=== PATIENT | female | born 1995 | race African-American/Black ===

== ENCOUNTER 2017-03-24 11:00 | Emergency (ER) | payer OTHER ==
[~2017-03-24] VITALS: Ht 182.9 cm; Wt 89.8 kg
[~2017-03-24 11:00] MED LIST: ABILIFY10 MG; ACETAMINOPHEN-1 EAC1 PO; BENTYL 10 MG CA10 M1 PO; CARAFATE 1 GM TA1 GM PO; CIPROFLOXIN HC2.5 M1 OPHTHALMIC; CORTISPORIN OTI10 M2 OT; IBUPROFEN 600600 M1 PO; IBUPROFEN 800800 M1 PO; INTUNIV1 MG PO; INTUNIV2 MG PO; KEFLEX500 MG PO; LEVOTHYROXIN0.075 MG PO; LEVOTHYROXINE0.05 MG; LORTABELXR PO; MEDROLDOSEPACK PO; MUCINEX TA600 MG/TA2 PO; NAPROXEN500 MG PO; NOHOMEMEDICATIONS; NORCO 5-325 TA1 EAC1 PO; NORCO 5-325 TA1 EACH PO; OMEPRAZOLE20 M2 PO; PROAIR HFA8.5 GM INH; ROBITUSSIN DM118 ML PO; SEROQUEL 50 MG50 M1; SYNTHROID75 MCG PO; ULTRAM 50MG TAB50 MG PO; ZOFRAN ODT4 MG PO
[2017-03-24 11:31] LABS: HEMATOCRIT 39.3 % (37.0-47.0); HEMOGLOBIN 12.9 gm/dL (12.0-15.0); MCH 28.9 pg (26.0-34.0); MCHC 32.7 g/dL (28.0-37.0); MCV 88.4 fL (80.0-100.0); MPV 8.9 fl. (7.2-11.1); NUCLEATED RBCS 0 /100WBC; PLATELET COUNT* 224 thou/uL (150-400); RBC 4.45 mil/uL (4.20-5.00); RDW-CV 14.2 % (10.5-14.5); WBC 11.9 thou/uL (4.0-11.0)
[2017-03-24 11:38] LABS: CALCIUM 8.7 mg/dL (8.5-10.1); CREATININE 0.6 mg/dL (0.6-1.3); POTASSIUM 3.7 mmol/L (3.5-5.1)
[2017-03-24 11:42] LABS: ALBUMIN 3.8 g/dL (3.4-5.0); TOTAL BILIRUBIN 0.5 mg/dL (<0.1-1.0); TOTAL PROTEIN 7.6 g/dL (6.4-8.2)
[2017-03-24 11:53] LABS: INFLUENZA A ANTIGEN None Detected (None Detect); INFLUENZA B ANTIGEN None Detected (None Detect)
[2017-03-24 12:11] LABS: ABSOLUTE LYMPHOCYTES 1.7 thou/uL (0.8-5.3); ABSOLUTE NEUTROPHILS 9.3 thou/uL (1.6-8.1); ANISOCYTOSIS 1+; PLATELET ESTIMATE ADEQUATE; POIKILOCYTOSIS 1+
[2017-03-24] MEDS ORDERED: ZITHROMAX500 MG PO (12:12)
[2017-03-24] MEDS ORDERED: IBUPROFEN 800800 M1 PO (12:12)
[2017-03-24 12:16] VITALS: BP 129/93
== END 2017-03-24 12:17 | disposition home or self-care (01) ==
LOC: M.ERS 11:00
PROVIDERS: Nurse Practitioner Family
DX: B27.90 Infectious mononucleosis, unspecified without complication (principal); J02.0 Streptococcal pharyngitis; F31.9 Bipolar disorder, unspecified; E07.9 Disorder of thyroid, unspecified; Z88.8 Allergy status to other drugs, medicaments and biological substances

== ENCOUNTER 2017-07-08 08:39 | Emergency (ER) | payer OTHER ==
[~2017-07-08] VITALS: Ht 182.9 cm; Wt 93.0 kg
[~2017-07-08 08:39] MED LIST changes: +ZITHROMAX500 MG PO
[2017-07-08] MEDS ORDERED: NAPROSYN500 MG PO (09:42)
[2017-07-08 10:27] VITALS: BP 124/79
== END 2017-07-08 10:29 | disposition home or self-care (01) ==
LOC: M.ERS 08:39
DX: S86.911A Strain of unspecified muscle(s) and tendon(s) at lower leg level, right leg, initial encounter (principal); F31.9 Bipolar disorder, unspecified; E07.9 Disorder of thyroid, unspecified; Z88.8 Allergy status to other drugs, medicaments and biological substances; W50.2XXA Accidental twist by another person, initial encounter; Y93.89 Activity, other specified; Y92.89 Other specified places as the place of occurrence of the external cause; Y99.0 Civilian activity done for income or pay

== ENCOUNTER 2018-01-03 12:44 | Emergency (ER) | payer OTHER ==
[~2018-01-03] VITALS: Ht 182.9 cm; Wt 112.5 kg
[~2018-01-03 12:44] MED LIST changes: +NAPROSYN500 MG PO
[2018-01-03] MEDS ORDERED: KEFLEX500 M1 PO (12:53)
[2018-01-03] MEDS ORDERED: ONDANSETRON HCL4 M2 PO (12:53)
[2018-01-03] MEDS ORDERED: IBUPROFEN 600600 M1 PO (12:54)
[2018-01-03 12:55] VITALS: BP 144/85
== END 2018-01-03 12:58 | disposition home or self-care (01) ==
LOC: M.ERS 12:44
DX: J02.9 Acute pharyngitis, unspecified (principal); F31.9 Bipolar disorder, unspecified; Z88.6 Allergy status to analgesic agent

== ENCOUNTER 2018-03-07 12:19 | Emergency (ER) | payer OTHER ==
[~2018-03-07] VITALS: Ht 182.9 cm; Wt 114.8 kg
[~2018-03-07 12:19] MED LIST changes: +KEFLEX500 M1 PO; +ONDANSETRON HCL4 M2 PO
[2018-03-07 13:01] LABS: ABSOLUTE EOSINOPHILS 0.1 thou/uL (0.0-0.7); ABSOLUTE LYMPHOCYTES 1.3 thou/uL (0.8-5.3); ABSOLUTE MONOCYTES 0.7 thou/uL (0.0-1.2); ABSOLUTE NEUTROPHILS 6.7 thou/uL (1.6-8.1); BASOPHILS 0.5 %; EOSINOPHILS 0.7 %; HEMATOCRIT 40.7 % (37.0-47.0); HEMOGLOBIN 13.3 gm/dL (12.0-15.0); LYMPHOCYTES 14.7 %; MCH 28.8 pg (26.0-34.0); MCHC 32.6 g/dL (28.0-37.0); MCV 88.2 fL (80.0-100.0); MONOCYTES 7.5 %; MPV 9.7 fl. (7.2-11.1); NUCLEATED RBCS 0 /100WBC; PLATELET COUNT* 194 thou/uL (150-400); POLYS 76.6 %; RBC 4.62 mil/uL (4.20-5.00); RDW-CV 14.7 % (10.5-14.5); WBC 8.8 thou/uL (4.0-11.0)
[2018-03-07 13:26] LABS: CALCIUM 8.5 mg/dL (8.5-10.1); CREATININE 0.6 mg/dL (0.6-1.3); POTASSIUM 3.5 mmol/L (3.5-5.1)
[2018-03-07 13:43] LABS: URINE BILIRUBIN NEGATIVE (Negative); URINE BLOOD 1+ (Negative); URINE CLARITY CLEAR; URINE COLOR YELLOW; URINE GLUCOSE-RANDOM NEGATIVE (Negative); URINE KETONES NEGATIVE (Negative); URINE LEUKOCYTES-REFLEX NEGATIVE (Negative); URINE NITRITE-REFLEX NEGATIVE (Negative); URINE PROTEIN NEGATIVE (Negative); URINE SPECIFIC GRAVITY >= 1.030 (1.005-1.030); URINE UROBILINOGEN 0.2 E.U./dl (0.2-1.0)
[2018-03-07] MEDS ORDERED: MEDROLDOSEPACK PO (13:45)
[2018-03-07 13:48] LABS: INFLUENZA A ANTIGEN None Detected (None Detect); INFLUENZA B ANTIGEN None Detected (None Detect)
[2018-03-07 13:58] LABS: BACTERIA-REFLEX None Seen /HPF (None Seen); CASTS None Seen /LPF (None Seen); CRYSTALS None Seen /LPF (None Seen); SQUAMOUS 0-3 Few /LPF (0-3); URINE RBC 0-2 Rare /HPF (0-2); URINE WBC-REFLEX 0-5 Rare /HPF (0-5)
[2018-03-07 14:18] VITALS: BP 149/77
== END 2018-03-07 14:18 | disposition home or self-care (01) ==
LOC: M.ERS 12:19
PROVIDERS: Nurse Practitioner Family
DX: B27.90 Infectious mononucleosis, unspecified without complication (principal); F31.9 Bipolar disorder, unspecified; E07.9 Disorder of thyroid, unspecified; Z88.8 Allergy status to other drugs, medicaments and biological substances

== ENCOUNTER 2019-10-09 23:56 | Emergency (ER) | payer OTHER ==
[~2019-10-09] VITALS: Ht 182.9 cm; Wt 120.7 kg
[2019-10-10] VITALS: BP 137/97
[2019-10-10] MEDS ORDERED: NORCO 5-325 TA1 EAC2 PO (00:25)
== END 2019-10-10 00:47 | disposition home or self-care (01) ==
LOC: M.ERS 23:56
DX: S93.491A Sprain of other ligament of right ankle, initial encounter (principal); Z88.6 Allergy status to analgesic agent; W01.0XXA Fall on same level from slipping, tripping and stumbling without subsequent striking against object, initial encounter; Y93.89 Activity, other specified; Y92.89 Other specified places as the place of occurrence of the external cause; Y99.8 Other external cause status

== ENCOUNTER 2020-01-16 10:24 | Emergency (ER) | payer OTHER ==
[~2020-01-16] VITALS: Ht 182.9 cm; Wt 95.3 kg
[~2020-01-16 10:24] MED LIST changes: +NORCO 5-325 TA1 EAC2 PO
[2020-01-16] MEDS ORDERED: NEXPLANON68 MG SUBQ (10:51)
[2020-01-16 11:15] LABS: INFLUENZA A ANTIGEN Negative (Negative); INFLUENZA B ANTIGEN Negative (Negative)
[2020-01-16 12:13] VITALS: BP 150/89
== END 2020-01-16 12:15 | disposition home or self-care (01) ==
LOC: M.ERS 10:24
PROVIDERS: Family Medicine
DX: B34.9 Viral infection, unspecified (principal); Z20.828 Contact with and (suspected) exposure to other viral communicable diseases; Z88.6 Allergy status to analgesic agent

== ENCOUNTER 2020-02-24 08:25 | Emergency (ER) | payer OTHER ==
[~2020-02-24] VITALS: Ht 182.9 cm; Wt 95.3 kg
[~2020-02-24 08:25] MED LIST changes: +NEXPLANON68 MG SUBQ
[2020-02-24 09:30] VITALS: BP 148/90
== END 2020-02-24 09:30 | disposition home or self-care (01) ==
LOC: M.ERS 08:25
DX: U07.1 COVID-19 (principal); Z88.6 Allergy status to analgesic agent

== ENCOUNTER 2020-03-05 09:06 | Emergency (ER) | payer OTHER ==
[~2020-03-05] VITALS: Ht 182.9 cm; Wt 95.3 kg
[2020-03-05 10:32] VITALS: BP 136/77
== END 2020-03-05 10:34 | disposition home or self-care (01) ==
LOC: M.ERS 09:06
DX: R05 Cough (principal); Z20.828 Contact with and (suspected) exposure to other viral communicable diseases